=== PATIENT | male | born 1945 | race Caucasian/White ===

== ENCOUNTER 2019-05-18 15:58 | Emergency (ER) | payer MEDICARE, BC ==
[~2019-05-18] VITALS: Ht 175.3 cm; Wt 72.7 kg
[2019-05-18 16:38] VITALS: Ht 175.3 cm; Wt 72.7 kg
[2019-05-18] MEDS ORDERED: ZYRTEC10 MG PO (16:41)
[2019-05-18] MEDS ORDERED: FISH OIL 1,0001 CA1 PO (16:41)
[2019-05-18] MEDS ORDERED: NORVASC5 MG PO (16:41)
[2019-05-18 17:02] LABS: BASOPHILS 0.1 % (0-2); EOSINOPHILS 0 % (0-7); HEMATOCRIT 38.2 % (42.0-54.0); HEMOGLOBIN 13.6 g/dL (13.5-17.5); IMMATURE GRANULOCYTES 0.1 % (0-5); LYMPHOCYTES 10.3 % (15-50); MCH 32.5 pg (26.0-34.0); MCHC 35.6 g/dL (31.0-37.0); MCV 91.2 fL (80.0-100.0); MONOCYTES 5.9 % (2-11); NEUTROPHILS 83.6 % (40-80); RBC 4.19 10x6/uL (4.20-6.10); RDW 13.6 % (11.5-14.5); WBC 9.5 10x3/uL (4.8-10.8)
[2019-05-18 17:03] LABS: PLATELET COUNT 167 10x3/uL (130-400)
[2019-05-18 17:22] LABS: ALKALINE PHOSPHATASE 106 U/L (46-116); ALT (SGPT) 28 U/L (10-68); BILIRUBIN - TOTAL 0.72 mg/dL (0.2-1.3); CALC OSMOLALITY 284 mosm/kg (275-300); CALCIUM 9.4 mg/dL (8.5-10.1); CHLORIDE - SERUM 102 mmol/L (98-107); CREATININE - SERUM 1.5 mg/dL (0.6-1.3); POTASSIUM - SERUM 4.2 mmol/L (3.5-5.1); PROTEIN - SERUM 7.6 g/dL (6.4-8.2); SODIUM 139 mmol/L (136-145); UREA NITROGEN 23 mg/dL (7-18); eGFR NON AFRICAN AMERICAN 48 mL/min (90-120)
[2019-05-18 17:23] LABS: GLUCOSE 148 mg/dL (74-106)
[2019-05-18 17:26] LABS: AMYLASE - SERUM 56 U/L (25-115); LIPASE 103 U/L (73-393)
[2019-05-18 17:32] LABS: TROPONIN-I < 0.017 ng/mL (0.000-0.060)
[2019-05-18 18:38] LABS: APPEARANCE CLEAR (CLEAR); BILIRUBIN NEGATIVE (NEGATIVE); COLOR YELLOW (YELLOW); GLUCOSE 50 mg/dL (NEGATIVE); KETONE MODERATE mg/dL (NEGATIVE); NITRITE NEGATIVE (NEGATIVE); PROTEIN NEGATIVE (NEGATIVE); UROBILINOGEN NORMAL (NORMAL)
[2019-05-18 18:40] LABS: WHITE CELLS - URINE OCC /hpf (0-5)
[2019-05-18 18:41] LABS: BACTERIA FEW /hpf (NONE SEEN)
[2019-05-18] MEDS ORDERED: CIPRO500 MG PO (20:30)
[2019-05-18] MEDS ORDERED: ZOFRAN4 MG PO (20:30)
[2019-05-18 20:48] VITALS: BP 128/76
== END 2019-05-18 20:48 | disposition home or self-care (01) ==
LOC: D.ER 15:58
PROVIDERS: Family Medicine
DX: R10.9 Unspecified abdominal pain (principal); R31.9 Hematuria, unspecified; N23 Unspecified renal colic; I10 Essential (primary) hypertension

== ENCOUNTER 2019-09-28 05:59 | Day surgery (SDC) | payer MEDICARE, BC ==
[~2019-09-28] VITALS: Ht 175.3 cm; Wt 70.3 kg
[~2019-09-28 05:59] MED LIST: BACLOFEN10 MG PO; CIPRO500 MG PO; FISH OIL 1,0001 CA1 PO; NORVASC5 MG PO; ZOFRAN4 MG PO; ZYRTEC10 MG PO
[2019-09-28 06:25] LABS: BASOPHILS 0.2 % (0-2); EOSINOPHILS 0.4 % (0-7); HEMATOCRIT 38.5 % (42.0-54.0); HEMOGLOBIN 13.2 g/dL (13.5-17.5); IMMATURE GRANULOCYTES 0.2 % (0-5); LYMPHOCYTES 23.7 % (15-50); MCH 32.1 pg (26.0-34.0); MCHC 34.3 g/dL (31.0-37.0); MCV 93.7 fL (80.0-100.0); MEAN PLATELET VOLUME 8.9 fL (7.4-10.4); MONOCYTES 10.7 % (2-11); NEUTROPHILS 64.8 % (40-80); PLATELET COUNT 186 10x3/uL (130-400); RBC 4.11 10x6/uL (4.20-6.10); RDW 13.5 % (11.5-14.5)
[2019-09-28 06:45] LABS: CALC OSMOLALITY 281 mosm/kg (275-300); CARBON DIOXIDE 28.4 mmol/L (21.0-32.0); CHLORIDE - SERUM 106 mmol/L (98-107); GLUCOSE 103 mg/dL (74-106); POTASSIUM - SERUM 4.3 mmol/L (3.5-5.1); SODIUM 140 mmol/L (136-145); UREA NITROGEN 20 mg/dL (7-18); eGFR NON AFRICAN AMERICAN 77 mL/min (90-120)
[2019-09-28 06:56] VITALS: BP 138/71; Ht 175.3 cm; Wt 70.3 kg
--- NOTE | 2019-09-28 08:59 | NUR ---
PROLENE MESH [facility] LOT [id number] 05/06/2024
[2019-09-28] MEDS ORDERED: HYDROCODON-ACE1 EA10 PO (09:15)
--- NOTE | 2019-09-28 11:04 | NUR ---
AMBULATES TO BATHROOM WITHOUT UNSTEADINESS OR DIZZINESS, VOIDS LARGE AMOUNT IN TOILET WITHOUT DIFFICULTY. PIV DC'D WITH TIP INTACT, DISCHARGE INSTRUCTIONS REVIEWED WITH PATIENT AND SPOUSE 1120 DISCHARGED HOME VIA WHEELCHAIR TO PRIVATE VEHICLE WITH SPOUSE
--- NOTE | 2019-10-09 13:37 | OP ---
PATIENT NAME: KENZIE CONDE MEDICAL RECORD: [id number] :43 LOCATION:D.OPS ADMISSION DATE: SURGEON: CONRADO SHORT MD DATE OF OPERATION: 09/28/2019 PREOPERATIVE DIAGNOSES: 1. Recurrent right inguinal hernia. 2. Hypertension. POSTOPERATIVE DIAGNOSES: 1. Recurrent right inguinal hernia. 2. Hypertension. PROCEDURE: Right inguinal hernia repair with medium PHS mesh. SURGEON: Conrado Short MD REPORT OF PROCEDURE: The patient's right groin was prepped and draped in sterile fashion. Previous right inguinal incision was reopened. Electrocautery was used to dissect through the subcutaneous tissues through the external oblique fascia. There was noted to be some scarring present from the previous surgery. This external oblique fascia was opened up to the external ring using electrocautery. Once inside, we were able to see that the patient had an indirect hernia defect, which was mainly fat-containing. We were able to elevate the spermatic cord and take down some of the scarred adhesions. A [place] was then placed around the spermatic cord. We dissected around the tissues and was able to find what appeared to be the nerve tissue, most consistent with the ilioinguinal nerve and this was high ligated. The hernia defect was pushed back into the abdominal cavity and we opened up the inguinal floor to allow dissection of the preperitoneal space of Retzius. The medium PHS mesh was inserted into this space and then sutured down on all 4 sides using multiple interrupted 0 Vicryls. The wound was then irrigated out with normal saline. The external oblique fascia was closed with running 2-0 Vicryl, Una's was closed with interrupted 3-0 Vicryls and the skin was closed with running subcutaneous 5-0 Monocryl. COMPLICATIONS: None. CONDITION: Stable. ANESTHESIA: General endotracheal and local. BLOOD LOSS: Minimal. TRANSINT:[id number] Voice Confirmation ID: [id number] DOCUMENT ID: [id number] CONRADO SHORT MD at 1337 CC: LASHAWN DE LA GARZA DO [id number] DICTATION DATE: 09/28/19918 MOTOR RACER: 09/28/19 [id number] [facility] 09/28/19 [place] [address]
== END 2019-09-28 11:20 | disposition home or self-care (01) ==
LOC: D.OPS 05:59
PROVIDERS: ATTEND Surgery
DX: K40.91 Unilateral inguinal hernia, without obstruction or gangrene, recurrent (principal); I10 Essential (primary) hypertension; K50.90 Crohn's disease, unspecified, without complications